=== PATIENT | female | born 1985 | race African-American/Black ===

== ENCOUNTER 2020-10-07 11:34 | Outpatient (CLI) | payer OTHER | END 2020-10-07 21:04 | disposition home or self-care (01) | LOC: US 11:34 | PROVIDERS: ATTEND Nurse Practitioner Family | DX: R10.84 Generalized abdominal pain (principal) ==

== ENCOUNTER 2022-11-17 10:46 | Outpatient (CLI) | payer OTHER | END 2022-11-17 19:00 | disposition home or self-care (01) | LOC: US 10:46 | PROVIDERS: ATTEND Nurse Practitioner Family | DX: R10.12 Left upper quadrant pain (principal) ==